=== PATIENT | male | born 1985 | race Caucasian/White ===

== ENCOUNTER 2021-08-31 15:34 | Emergency (ER) | payer OTHER ==
[2021-08-31] MEDS ORDERED: Diphtheria,Pertussis(Acell),Tetanus Vaccine 0.5 ML Syringe IM ONE (18:44)
[2021-08-31] MEDS ORDERED: Lidocaine 1% 5 ML VIAL INJECT STA (18:49)
== END 2021-08-31 19:39 | disposition home or self-care (01) ==
LOC: MW.ED 15:34
DX: S61.211A Laceration without foreign body of left index finger without damage to nail, initial encounter (principal); Z91.030 Bee allergy status; Z23 Encounter for immunization; W26.0XXA Contact with knife, initial encounter
CPT/HCPCS: 12001; 90471; 90715; 99282